=== PATIENT | female | born 1960 | race Caucasian/White ===

== ENCOUNTER → 2023-08-03 15:02 | Outpatient (REF) | payer OTHER, SELFPAY | LOC: DHCBS MAIN 15:02 | PROVIDERS: ATTENDING PHYSICIAN Internal Medicine Interventional Cardiology; FAMILY PHYSICIAN Internal Medicine | DX: E78.5 Hyperlipidemia, unspecified (principal); R00.2 Palpitations; I10 Essential (primary) hypertension | CPT/HCPCS: 93306 ==

== ENCOUNTER → 2024-06-06 10:54 | Outpatient (REF) | payer SELFPAY | LOC: HWRAD 10:54 | PROVIDERS: ATTENDING PHYSICIAN Internal Medicine Interventional Cardiology; FAMILY PHYSICIAN Internal Medicine | DX: E78.5 Hyperlipidemia, unspecified (principal) | CPT/HCPCS: 75571 ==

== ENCOUNTER → 2024-06-06 11:03 | Outpatient (REF) | payer OTHER, SELFPAY | LOC: WDC 11:03 | PROVIDERS: ATTENDING PHYSICIAN Internal Medicine | DX: Z12.31 Encounter for screening mammogram for malignant neoplasm of breast (principal) | CPT/HCPCS: 77063; 77067 ==